=== PATIENT | female | born 1965 | race Caucasian/White ===

== ENCOUNTER → 2024-01-13 10:00 | Outpatient (REF) | payer BC, SELFPAY | LOC: WDC 10:00 | PROVIDERS: ATTENDING PHYSICIAN Nurse Practitioner Family; FAMILY PHYSICIAN Family Medicine | DX: N63.20 Unspecified lump in the left breast, unspecified quadrant (principal); N64.4 Mastodynia; N63.23 Unspecified lump in the left breast, lower outer quadrant | CPT/HCPCS: 76642; 77062; 77066 ==

== ENCOUNTER → 2024-09-22 11:28 | Outpatient (REF) | payer BC, SELFPAY | LOC: HWRAD 11:28 | PROVIDERS: ATTENDING PHYSICIAN Family Medicine | DX: R31.29 Other microscopic hematuria (principal) | CPT/HCPCS: 76770 ==

== ENCOUNTER → 2024-10-20 09:18 | Outpatient (REF) | payer BC, SELFPAY | LOC: HWRAD 09:18 | PROVIDERS: ATTENDING PHYSICIAN Surgery; FAMILY PHYSICIAN Family Medicine | DX: R31.29 Other microscopic hematuria (principal) | CPT/HCPCS: 74178; Q9967 ==

== ENCOUNTER → 2025-09-18 18:55 | Outpatient (REF) | payer OTHER, SELFPAY | LOC: WDC 18:55 | PROVIDERS: ATTENDING PHYSICIAN Obstetrics & Gynecology; FAMILY PHYSICIAN Family Medicine | DX: Z12.31 Encounter for screening mammogram for malignant neoplasm of breast (principal) | CPT/HCPCS: 77063; 77067 ==